=== PATIENT | female | born 1980 | race Two or more races ===

== ENCOUNTER 2020-07-23 15:52 | Emergency (ER) | payer MEDICAID ==
[~2020-07-23] VITALS: Ht 157.5 cm; Wt 154.2 kg
[~2020-07-23 15:52] MED LIST: ACETAMINOPHEN-1 EAC1 ORAL; FUROSEMIDE20 M1 ORAL; NKM
--- NOTE | 2020-07-23 16:10 | NUR ---
ED Nurse Note: pt presents to ED c/o abd pain and nausea x 1 week. pt also reports that she has dysuria. pt denies any cough at this time, she is noted to be febrile upon triage which she did not know about. no other complaints at this time
[2020-07-23] MEDS ORDERED: Acetaminophen 500mg (ES) tab ORAL ONE (16:15)
[2020-07-23 16:33] VITALS: BP 139/76
--- NOTE | 2020-07-23 16:43 | Emergency Room Report ---
History of Present Illness General Chief Complaint: Flu Like Symptoms Source: Patient Present Illness HPI Disclaimer: Please note that this report is being documented using [employer] technology. This can lead to erroneous entry secondary to incorrect interpretation by the dictating instrument. HPI: 39-year-old female with a history of morbid obesity presents for evaluation of abdominal discomfort. Reports 2 weeks of painful urination without hematuria. Worsening lower pelvic pain and pressure. Does not radiate to the flanks. Denies fever at home but does arrive febrile. Reports chills intermittently. Denies vomiting but reports nausea. Denies diarrhea but reports constipation. Constipation is a chronic problem for the patient but does not use laxatives or stool softeners. Denies cough, shortness of breath, chest pain, URI symptoms. Denies contact with COVID-19 positive individuals. No recent COVID-19 testing. PMH: Obesity PSH: Reviewed Allergies: Denied Social Hx: Denied Allergies: Coded Allergies: No Known Allergies (Unverified , 01/18/15) COVID-19 Screening Contact w/high risk pt: No Experienced COVID-19 symptoms?: Yes COVID-19 Testing performed LOAN FUNDER: No Patient History Last Menstrual Period: none Now: No Nursing Documentation-PMH Past Medical History: No History, Except For Hx Asthma: Yes Review of Systems All Other Systems: negative except mentioned in HPI Physical Exam Vital Signs Date Time Temp Pulse Resp B/P (MAP) Pulse Ox O2 Delivery O2 Flow Rate FiO2 07/23/20 15:56 102.0 94 20 139/76 (97) 96 Room Air General: Awake and alert, no acute distress, febrile HEENT: NC/AT. EOMI. Cardiovascular: RRR. S1 and S2 normal. No murmur appreciated Resp: Normal work of breathing. No cough, wheezing or crackles appreciated Abdomen: Abdomen is morbidly obese. Tender to palpation of the suprapubic region. Unable to assess for rebound, mass or Gomez's given her body habitus. Skin: Intact. No abrasions, laceration or rash over the exposed skin MSK: Normal tone and bulk. Moving all extremities. No obvious deformity. Neuro: Awake and alert. Mentating appropriately. Medical Decision Making Diagnostic Impression: Primary Impression: UTI (urinary tract infection) Additional Impression: Constipation ER Course Is a 39-year-old female presenting for evaluation of 2 weeks dysuria and abdominal pain. Febrile with temperature 102. No respiratory distress or other complaints from patient at this time. Nonobstructive bowel gas pattern on x- ray. Will discharge with MiraLAX for constipation. Urinalysis consistent with urinary tract infection. Will discharge on Macrobid. Will follow up with her PMD. Instructed to return with new or worsening symptoms. Laboratory Tests Test 07/23/20 16:28 Urine Color Yellow Urine Appearance Cloudy Urine pH 5 (4.5-8.0) Urine Specific [place] 1.020 (1.005-1.035) Urine Protein 2+ (NEGATIVE) H Urine Glucose (UA) Negative (NEGATIVE) Urine Ketones 1+ (NEGATIVE) H Urine Blood 2+ (NEGATIVE) H Urine Nitrite Positive (NEGATIVE) H Urine Bilirubin 1+ (NEGATIVE) H Urine Ictotest Negativ (NEGATIVE) Urine Urobilinogen 4 MG/DL (0.0-1.0) H Urine Leukocyte Esterase 1+ (NEGATIVE) H Urine RBC 5-10 /HPF (0 - 2) H Urine WBC 2-4 /HPF (0 - 2) Urine Squamous Epithelial Cells Many /LPF (NONE/OCC) H Urine Bacteria Many /HPF (NONE) H Urine HCG, Qualitative Negative (NEGATIVE) Other X-Ray Diagnostic Results Other X-Ray Diagnostic Results : X-Ray ordered: Abdomen # of Views/Limited Vs Complete: 1 View Indication: Pain EP Interpretation: Yes Interpretation: nonspecific bowel gas, no sbo Impression: No acute disease Electronically Signed by: Electronically signed by Dr. Alfonso Lino MD Last Vital Signs Date Time Temp Pulse Resp B/P (MAP) Pulse Ox O2 Delivery O2 Flow Rate FiO2 07/23/20 16:33 102.0 20 139/76 96 Room Air 07/23/20 16:33 94 Disposition: HOME, SELF-CARE Condition: Stable Scripts Polyethylene Glycol 3350* (MIRALAX*) 17 Gm Powd.pack 17 GM ORAL BID for 14 Days, #30 PACKET Prov: Alfonso Lino MD 07/23/20 Nitrofurantoin Monohyd/M-Cryst* (MACROBID 100 MG*) 100 Mg Capsule 100 MG ORAL EVERY 12 HOURS for 7 Days, #14 CAP Prov: Alfonso Lino MD 07/23/20 Referrals: [facility],REFERRING (PCP) Alfonso Lino MD Jul 23, 2020 16:43
[2020-07-23 16:56] LABS: APPEARANCE,URINE CLOUDY; BILIRUBIN, URINE 1+ (NEGATIVE); GLUCOSE, URINE (UA) NEGATIVE (NEGATIVE); KETONES,URINE 1+ (NEGATIVE); LEUKOCYTE ESTERASE ,URINE 1+ (NEGATIVE); NITRITE,URINE POSITIVE (NEGATIVE); PH,URINE 5 (4.5-8.0); PROTEIN,URINE 2+ (NEGATIVE); UROBILINOGEN,URINE 4 MG/DL (0.0-1.0)
[2020-07-23 17:05] LABS: COLOR,URINE YELLOW
[2020-07-23] MEDS ORDERED: NITROFURANTOIN100 M2 ORAL (17:10)
[2020-07-23] MEDS ORDERED: MIRALAX17 G2 ORAL (17:10)
--- NOTE | 2020-07-23 17:34 | NUR ---
ED Nurse Note: pt returned to x-ray on stable condition.
--- NOTE | 2020-07-23 17:46 | Diagnostic Imaging Report ---
EXAM: XR Abdomen, 2 Views CLINICAL HISTORY: ABD PAIN TECHNIQUE: Frontal view of the abdomen/pelvis with upright view of the abdomen. COMPARISON: No relevant prior studies available. FINDINGS: Limitations: Study limited due to large patient body habitus. Intraperitoneal space: No free air. Gastrointestinal tract: Unremarkable. No dilation. Bones/joints: Unremarkable. Other findings: No acute abnormality seen. IMPRESSION: 1. Study limited due to large patient body habitus. 2. No acute abnormality seen. 3. If there is further concern, recommend CT with IV contrast.
[2020-07-23 18:05] VITALS: BP 139/76
--- NOTE | 2020-07-23 18:05 | NUR ---
ER DISCHARGE NOTE: Patient is cleared to be discharged per ERMD, pt is aox4, on room air, with stable vital signs. pt was given dc and prescription instructions, pt was able to verbalize understanding, pt id band removed without complications. pt is able to ambulate with steady gait. pt took all belongings.
== END 2020-07-23 18:05 | disposition home or self-care (01) ==
LOC: EMR 16:28
DX: N39.0 Urinary tract infection, site not specified (principal); K59.00 Constipation, unspecified; J45.909 Unspecified asthma, uncomplicated
CPT/HCPCS: 74018; 81003; 81025; 87086; 87181; Z7502; 99283